=== PATIENT | female | born 1945 | race Caucasian/White ===

== ENCOUNTER 2017-05-11 11:54 | Day surgery (SDC) | payer OTHER ==
[~2017-05-11] VITALS: Ht 152.4 cm; Wt 76.0 kg
[2017-05-11 14:07] VITALS: Ht 152.4 cm; Wt 76.0 kg
[2017-05-11] MEDS ORDERED: METF500T PO (14:17)
[2017-05-11] MEDS ORDERED: GLIP-95 PO (14:17)
[2017-05-11] MEDS ORDERED: ASPI81TA3 PO (14:17)
[2017-05-11] MEDS ORDERED: AMLO5TAB4 PO (14:17)
[2017-05-11 14:46] VITALS: BP 147/72; PULSE 79; RESP 12
[2017-05-11] MEDS ORDERED: PROPOFOL 20 ML ONE (14:54)
[2017-05-11] MEDS ORDERED: MIDAZOLAM 1 MG/ML 2 ML INJ ONE (14:54)
--- NOTE | 2017-05-11 15:49 | GILP ---
DATE OF PROCEDURE: 05/11/2017 PROCEDURE PERFORMED: Colonoscopy to cecum. BRIEF HISTORY AND INDICATIONS: The patient is being evaluated for colorectal cancer screening. PREMEDICATION: Monitored anesthesia care by anesthesiologist. SURGEON: Jesse Warner MD. INSTRUMENT USED: Olympus colonoscope. PREPARATION: Poor on the left side of the colon, but adequate on the right side of the colon. Ther e is semi-solid stool in the rectosigmoid area treated with lavage extensively. TECHNIQUE: After informed consent, with the patient/relatives understanding the procedure, its indic ations potential risks and complications, including but not limited to: allergic reaction, bleeding, perforation, infection, missed lesions and after all pertinent questions were answered to the patie nt's satisfaction, the patient/relatives signed the witnessed informed consent. Following this, premedication was administered slowly IV push by under careful cardiovascular and re spiratory monitoring with pulse oximetry, automatic blood pressure and patient monitor. Once the sedativ e effect was achieved, the patient was placed in the left lateral decubitus position, digital rectal examination was performed. The colonoscope was then introduced and advanced under visual control th roughout all segments of the colon including: the rectum, sigmoid, descending colon, splenic flexure , transverse colon, hepatic flexure, ascending colon and finally reaching the cecum which was clearl y identified by transillumination, finger indentation and the ileocecal valve. Careful examination o f the mucosa of the lower gastrointestinal tract both on insertion as well as withdrawal of the inst rument disclosed the following findings: Rectal Examination: No evidence of perirectal disease, no masses. Colonic Mucosa: The colonic mucosa is unremarkable. The ileocecal valve was clearly identified and a ppears unremarkable. The instrument was withdrawn reexamining the mucosa in detail. No additional a bnormalities were noted with the exception of moderate sized internal hemorrhoids. IMPRESSION: Diverticulosis, left side of the colon with poor preparation in the rectosigmoid area. Extensive lavage was applied. No gross lesions identified. PLAN: The patient will be treated and followed up as an outpatient. Annual Hemoccult stool testing will be recommended and screening colonoscopy in 3 years is recommended given the poor preparation encountered today. Dictated By: JESSE WARNER MS/SANDY Conf#: [id number] DID#: [id number]
[2017-05-11 15:50] VITALS: BP 145/71; PULSE 78; RESP 12
== END 2017-05-11 17:26 | disposition home or self-care (01) ==
LOC: GIL 11:54
PROVIDERS: ATTEND Internal Medicine Gastroenterology
DX: Z12.11 Encounter for screening for malignant neoplasm of colon (principal); K64.8 Other hemorrhoids; E11.9 Type 2 diabetes mellitus without complications; I10 Essential (primary) hypertension
CPT/HCPCS: 45378; 82962; J2250

== ENCOUNTER 2018-08-07 05:53 | Day surgery (SDC) | END 2018-08-07 12:23 | disposition home or self-care (01) ==